=== PATIENT | male | born 1945 | race Caucasian/White ===

== ENCOUNTER → 2016-08-21 | Day surgery (SDC) | payer OTHER ==
[~2016-08-21] VITALS: Ht 182.8 cm; Wt 127.0 kg
[~2016-08-21] MED LIST: AMARYL2 MG PO; ASPIRIN81 M1 PO; CLOPIDOGREL75 MG PO; MELOXICAM7.5 MG PO; METFORMIN HCL1000 MG PO; SIMVASTATIN40 MG PO; TRESIBA FL100 UNIT/1 SC; VITAMIN D50000 I3 PO
--- NOTE | ~2016-08-21 | O ---
[place], [place] OPERATIVE NOTE NAME: THERESA SMITH UNIT #: [id number] ROOM: DOCTOR: SAHARA DUENAS MD BIRTHDATE: [birth year] DOS: 08/21/2016 GASTROENDOSCOPIC REPORT INDICATIONS: A 71-year-old patient who has presented with chief complaint of colonic screening, undergoing investigation. ALLERGIES: TO SULFA. FAMILY HISTORY: Father with colonic carcinoma. PAST SURGICAL HISTORY: Heart ablation. PAST MEDICAL HISTORY: Diabetes, hypertension, and CVA. SOCIAL HISTORY: Nonsmoker, nonalcohol consumer. PROCEDURE: Today's procedure part of investigation is colonoscopy plus multiple polypectomy. PREMEDICATION: Versed and Diprivan. SCOPE: Olympus forward-viewing colonoscope 10L video. REPORT: After putting the patient in the left lateral position and after application of lubricant to rectal pouch and digital examination, scope was introduced. Thereafter, under direct visualization, I advanced through the length of colon without difficulty. Cecal polyp, sessile in character, with piecemeal polypectomy removed. Polypoid lesions x 4, with snare polypectomy was done, at the hepatic flexure, one, particularly broad based and deeply invaded. Site was tattoo marked. Two other polypoid lesions in the sigmoid colon with piecemeal polypectomy removed. The patient extubated and tolerated the procedure well. IMPRESSION: Multiple colonic polyps, one at cecum, four at hepatic flexure, two at sigmoid colon, status post tattoo marking at the hepatic flexure, concerned about polypoid lesion at the hepatic flexure. PLAN AND DISCUSSION: Awaiting biopsy results. If it is dysplastic, then surgical resection. If it is normal, then follow up. ____ and meloxicam is going to be held for the next 5 days due to the intensity of polypectomies that was done. [place], [place] OPERATIVE NOTE NAME: THERESA SMITH UNIT #: [id number] ROOM: DOCTOR: SAHARA DUENAS MD BIRTHDATE: [birth year] SAHARA DUENAS MD CM:OPRECORD:OPERATIVE NOTE [id number] SAHARA DUENAS MD 08/21/16 1357 interface
[2016-08-21 09:50] VITALS: BP 130/77
[2016-08-21 11:53] VITALS: BP 120/60
[2016-08-21 12:10] VITALS: BP 113/80
[2016-08-21 12:24] VITALS: BP 114/59
== END | disposition home or self-care (01) ==
LOC: SDC 08-17 12:30
DX: Z12.11 Encounter for screening for malignant neoplasm of colon (principal); D12.0 Benign neoplasm of cecum; D12.3 Benign neoplasm of transverse colon; D12.5 Benign neoplasm of sigmoid colon; E11.9 Type 2 diabetes mellitus without complications; I10 Essential (primary) hypertension; Z86.73 Personal history of transient ischemic attack (TIA), and cerebral infarction without residual deficits; Z80.0 Family history of malignant neoplasm of digestive organs

== ENCOUNTER → 2017-10-29 | Day surgery (SDC) | payer OTHER ==
[~2017-10-29] VITALS: Ht 182.8 cm; Wt 122.5 kg
[~2017-10-29] MED LIST changes: +FISH OIL 1,2001 EACH PO; +GOOD NEIGHBOR L10 MG PO; +HUMALOG100 UNIT/1 PO; +LISINOPRIL10 M1 PO
--- NOTE | ~2017-10-29 | O ---
[place], [place] OPERATIVE NOTE NAME: THERESA SMITH UNIT #: [id number] ROOM: DOCTOR: SAHARA DUENAS MD BIRTHDATE: [birth year] DOS: 10/29/2017 HISTORY OF PRESENT ILLNESS: The patient has presented with a concern about family history of colonic carcinoma as well as previous history of tubular adenoma polyp with low-grade dysplasia, tattoo, and hepatic flexure. ALLERGIES: SULFA. PAST SURGICAL HISTORY: Heart ablation. PAST MEDICAL HISTORY: CVA and hypertension. SOCIAL HISTORY: Nonsmoker, nonalcohol consumer. PROCEDURE: Today's procedure part of investigation is colonoscopy plus two sessile polypoid lesions, piecemeal polypectomy. PREMEDICATION: Versed and propofol. SCOPE: Olympus forward-viewing colonoscope 10L video. REPORT: After putting the patient in left lateral position and application of lubricant to the scope, the scope was introduced. Thereafter, under direct visualization, advanced through the length of colon without difficulty till we approached about mid ascending colon, which is liquid stool in the colon. Two polypoid lesions, sessile in character from hepatic flexure with piecemeal polypectomy removed. Air was suctioned out. The patient was extubated, tolerated the procedure well. IMPRESSION: Some retained stool in cecum; however, two colonic polyps, status post piecemeal polypectomy. PLAN AND DISCUSSION: Withholding aspirin ____ x 2 days and resumption of orders again. Clopidogrel to be started from Wednesday as well. Follow-up colonoscopy in 10 years unless patient has symptoms for which follow-up should be sooner. Thank you very much indeed for your kind referral. [place], [place] OPERATIVE NOTE NAME: THERESA SMITH UNIT #: [id number] ROOM: DOCTOR: SAHARA DUENAS MD BIRTHDATE: [birth year] SAHARA DUENAS MD CM:OPRECORD:OPERATIVE NOTE [id number] SAHARA DUENAS MD 11/22/17 1743 interface
[2017-10-29 13:37] VITALS: BP 131/89
[2017-10-29 15:15] VITALS: BP 109/69
[2017-10-29 15:30] VITALS: BP 120/77
[2017-10-29 15:45] VITALS: BP 114/90
== END | disposition home or self-care (01) ==
LOC: SDC 10-25 08:45
DX: Z09 Encounter for follow-up examination after completed treatment for conditions other than malignant neoplasm (principal); D12.3 Benign neoplasm of transverse colon; E11.9 Type 2 diabetes mellitus without complications; I10 Essential (primary) hypertension; K21.9 Gastro-esophageal reflux disease without esophagitis; E66.09 Other obesity due to excess calories; Z98.890 Other specified postprocedural states; Z88.2 Allergy status to sulfonamides; Z86.010 Personal history of colon polyps; Z80.0 Family history of malignant neoplasm of digestive organs; Z86.73 Personal history of transient ischemic attack (TIA), and cerebral infarction without residual deficits; Z79.899 Other long term (current) drug therapy; Z68.36 Body mass index [BMI] 36.0-36.9, adult

== ENCOUNTER → 2019-02-10 | Outpatient (CLI) | payer OTHER | END | disposition home or self-care (01) | LOC: ORTHO 01:02 | DX: M47.816 Spondylosis without myelopathy or radiculopathy, lumbar region (principal); M16.0 Bilateral primary osteoarthritis of hip; R20.0 Anesthesia of skin; M25.752 Osteophyte, left hip; M25.751 Osteophyte, right hip ==

== ENCOUNTER 2022-04-16 18:09 | Emergency (ER) | payer OTHER ==
[~2022-04-16] VITALS: Wt 103.0 kg
[2022-04-16 19:26] LABS: BASO % 0.3 % (0.0-1.0); EOS # 0.2 10*3/uL (0.0-0.4); EOS % 1.9 % (1.0-4.0); HEMATOCRIT 35.2 % (42.0-52.0); LYMPH # 2.8 10*3/uL (1.3-4.4); LYMPH % 35.2 % (27.0-41.0); MEAN CELL VOLUME 85.4 fl (80.0-94.0); MEAN CORPUSCULAR HGB 27.4 pg (27.0-31.0); MEAN CORPUSCULAR HGB CONC 32.1 g/dl (33.0-37.0); MEAN PLATELET VOLUME 11.5 fl (9.6-12.3); MONO # 0.6 10*3/uL (0.1-1.0); MONO % 7.3 % (3.0-9.0); NEUT # 4.4 10*3/uL (2.3-7.9); PLATELET COUNT AUTOMATED 179 10*3/uL (130-400); RED BLOOD COUNT 4.12 10*6/uL (4.50-5.90); RED CELL DISTRI WIDTH 14.3 % (0-14.5); WHITE BLOOD COUNT 7.9 10*3/uL (4.8-10.8)
[2022-04-16 19:49] LABS: ALKALINE PHOSPHATASE 61 U/L (45-117); BUN 17 mg/dl (7-24); CHLORIDE 108 mmol/L (98-107); CREATININE 1.03 mg/dL (0.70-1.30); POTASSIUM 4.5 mmol/L (3.5-5.1); SGOT/AST 12 IU/L (3-35); SGPT/ALT 17 U/L (12-78); SODIUM 138 mmol/L (136-145); TOTAL PROTEIN 6.4 gm/dL (6.4-8.2)
== END 2022-04-16 21:49 | disposition home or self-care (01) ==
LOC: ED 18:09
PROVIDERS: Nurse Practitioner
DX: S00.81XA Abrasion of other part of head, initial encounter (principal); Z79.899 Other long term (current) drug therapy; Z79.82 Long term (current) use of aspirin; Z88.2 Allergy status to sulfonamides; W19.XXXA Unspecified fall, initial encounter; Y93.89 Activity, other specified; Y92.89 Other specified places as the place of occurrence of the external cause; Y99.8 Other external cause status

== ENCOUNTER 2022-08-31 13:21 | Emergency (ER) | payer OTHER ==
[~2022-08-31] VITALS: Ht 182.8 cm; Wt 104.8 kg
[2022-08-31 14:04] LABS: BASO % 0.2 % (0.0-1.0); EOS # 0.2 10*3/uL (0.0-0.4); EOS % 2.3 % (1.0-4.0); HEMATOCRIT 31.6 % (42.0-52.0); LYMPH # 3.2 10*3/uL (1.3-4.4); LYMPH % 38.1 % (27.0-41.0); MEAN CELL VOLUME 82.9 fl (80.0-94.0); MEAN CORPUSCULAR HGB 26.5 pg (27.0-31.0); MEAN PLATELET VOLUME 11.3 fl (9.6-12.3); MONO # 0.7 10*3/uL (0.1-1.0); MONO % 8.1 % (3.0-9.0); NEUT # 4.3 10*3/uL (2.3-7.9); NEUT % 51.2 % (47.0-73.0); PLATELET COUNT AUTOMATED 200 10*3/uL (130-400); RED BLOOD COUNT 3.81 10*6/uL (4.50-5.90); RED CELL DISTRI WIDTH 14.3 % (0-14.5); WHITE BLOOD COUNT 8.4 10*3/uL (4.8-10.8)
[2022-08-31 14:15] LABS: ACT PARTIAL THROMBO TIME 26.6 SECONDS (20.0-32.1); INTERNATIONAL NORM RATIO 1.1 (2.0-3.5)
[2022-08-31 14:19] LABS: ALKALINE PHOSPHATASE 63 U/L (46-116); BUN 12 mg/dl (9-23); CHLORIDE 105 mmol/L (98-107); POTASSIUM 4.5 mmol/L (3.4-5.1); SGPT/ALT 9 U/L (10-49); TOTAL PROTEIN 6.1 gm/dL (6.0-8.0)
[2022-08-31 15:42] LABS: BILIRUBIN Negative (Negative); BLOOD Negative (Negative); CLARITY Clear (Clear); COLOR Yellow (Yellow); GLUCOSE 3+ (Negative); KETONE Trace (Negative); LEUKO ESTERASE Negative (Negative); NITRITE Negative (Negative); SPECIFIC GRAVITY 1.025 (1.001-1.030); UROBILINOGEN 0.2 E.U./dl (0.0-1.0)
[2022-08-31 15:59] LABS: RBC 0-2 rbc/hpf (0-2); WBC 0-2 wbc/hpf (0-5)
[2022-08-31 16:03] LABS: URINE AMPHETAMINES Negative (1000ng/ml); URINE BARBITURATES Negative (200ng/ml); URINE BENZODIAZEPINES Negative (200ng/ml); URINE CANNABINOIDS (THC) Negative (50ng/ml); URINE COCAINE Negative (300ng/ml); URINE METHADONE Negative (300ng/ml); URINE OPIATES Negative (300ng/ml); URINE PHENCYCLIDINE Negative (25ng/ml)
== END 2022-09-01 10:28 ==
LOC: ED 13:21
PROVIDERS: Emergency Medicine; Internal Medicine
DX: R45.851 Suicidal ideations (principal); F43.21 Adjustment disorder with depressed mood; E11.9 Type 2 diabetes mellitus without complications; I10 Essential (primary) hypertension; Z86.73 Personal history of transient ischemic attack (TIA), and cerebral infarction without residual deficits; K21.9 Gastro-esophageal reflux disease without esophagitis; Z98.890 Other specified postprocedural states; Z20.822 Contact with and (suspected) exposure to COVID-19

== ENCOUNTER 2023-08-05 18:51 | Emergency (ER) | payer OTHER ==
[~2023-08-05 18:51] MED LIST changes: +ATORVASTATIN CA20 M1 PO; +B121000 MCG/1 IM; +COLACE100 MG PO; +ELIQUIS5 M1 PO; +IRON325 M1 PO; +KEFLEX 500 MG E2 CAP PO; +LISINOPRIL20 MG PO; +MELATONIN5 M6 PO; +METFORMIN HYDR500 MG PO; +NUED1CAP PO; +TRESIBA100 UNIT/1 SQ; +TRULICITY0.75 MG/0. SC; +ZOLOFT100 MG PO; +ZOLOFT25 MG PO
[2023-08-05] MEDS ORDERED: ATIVAN0.5 MG PO (19:21)
[2023-08-05] MEDS ORDERED: ACETAMINOPHEN325 M2 PO (19:21)
[2023-08-05] MEDS ORDERED: DEPAKOTE500 M2 PO (19:24)
[2023-08-05] MEDS ORDERED: HYDROXYZINE HCL25 MG PO (19:25)
[2023-08-05] MEDS ORDERED: MILK OF MA400 MG/53 PO (19:27)
[2023-08-05 19:28] LABS: BASO % 0.3 % (0.0-1.0); EOS # 0.2 10*3/uL (0.0-0.4); EOS % 2.7 % (1.0-4.0); HEMATOCRIT 26.5 % (42.0-52.0); LYMPH # 2.9 10*3/uL (1.3-4.4); LYMPH % 36.9 % (27.0-41.0); MEAN CELL VOLUME 80.5 fl (80.0-94.0); MEAN CORPUSCULAR HGB 24.3 pg (27.0-31.0); MEAN CORPUSCULAR HGB CONC 30.2 g/dl (33.0-37.0); MEAN PLATELET VOLUME 10.7 fl (9.6-12.3); MONO # 0.6 10*3/uL (0.1-1.0); MONO % 7.3 % (3.0-9.0); NEUT # 4.1 10*3/uL (2.3-7.9); NEUT % 52.5 % (47.0-73.0); PLATELET COUNT AUTOMATED 212 10*3/uL (130-400); RED BLOOD COUNT 3.29 10*6/uL (4.50-5.90); RED CELL DISTRI WIDTH 16.5 % (0-14.5); WHITE BLOOD COUNT 7.8 10*3/uL (4.8-10.8)
[2023-08-05] MEDS ORDERED: NOVOLOG FL100 UNIT/2 SC (19:30)
[2023-08-05] MEDS ORDERED: TRESIBA FL100 UNIT/1 SQ (19:36)
[2023-08-05] MEDS ORDERED: VOLTAREN ARTHRI20 GM T (19:38)
[2023-08-05 20:10] LABS: ALKALINE PHOSPHATASE 69 U/L (46-116); BUN 22 mg/dl (9-23); CHLORIDE 104 mmol/L (98-107); CPK 202 U/L (34-171); ETHYL ALCOHOL < 3.0 mg/dl (<3); POTASSIUM 4.4 mmol/L (3.4-5.1); SGPT/ALT 20 U/L (5-49); TOTAL PROTEIN 5.9 gm/dL (6.0-8.0)
[2023-08-05] MEDS ORDERED: SODIUM CHLORIDE 0.9% 1,000 ML IV ONE (20:15)
[2023-08-05] MEDS ORDERED: INSULIN REGULAR, HUMAN 1 UNIT/0.01 ML IV ONE (20:50)
[2023-08-05] MEDS ORDERED: LORazepam 1 MG TAB PO ONE (22:25)
[2023-08-05 22:55] LABS: BILIRUBIN Negative (Negative); BLOOD Negative (Negative); CLARITY Clear (Clear); COLOR Yellow (Yellow); GLUCOSE 3+ (Negative); KETONE Negative (Negative); LEUKO ESTERASE Negative (Negative); NITRITE Negative (Negative); PH 5.5 (4.5-8.0); UROBILINOGEN 0.2 E.U./dl (0.0-1.0)
[2023-08-05 23:02] LABS: URINE AMPHETAMINES Negative (1000ng/ml); URINE BARBITURATES Negative (200ng/ml); URINE BENZODIAZEPINES Negative (200ng/ml); URINE CANNABINOIDS (THC) Negative (50ng/ml); URINE COCAINE Negative (300ng/ml); URINE METHADONE Negative (300ng/ml); URINE OPIATES Negative (300ng/ml); URINE PHENCYCLIDINE Negative (25ng/ml)
[2023-08-05] MEDS ORDERED: DIAZEPAM 10 MG/2 ML SYR IM ONE (23:25)
[2023-08-05] MEDS ORDERED: Ziprasidone Mesylate 20 MG VIAL IM ONE (23:55)
== END 2023-08-06 09:20 | disposition short-term general hospital (02) ==
LOC: ED 18:51
PROVIDERS: Nurse Practitioner Family
DX: E86.0 Dehydration (principal); Z20.822 Contact with and (suspected) exposure to COVID-19; E11.65 Type 2 diabetes mellitus with hyperglycemia; I10 Essential (primary) hypertension; Z86.73 Personal history of transient ischemic attack (TIA), and cerebral infarction without residual deficits; K21.9 Gastro-esophageal reflux disease without esophagitis; F03.90 Unspecified dementia, unspecified severity, without behavioral disturbance, psychotic disturbance, mood disturbance, and anxiety; Z88.2 Allergy status to sulfonamides; Z88.8 Allergy status to other drugs, medicaments and biological substances; Z98.890 Other specified postprocedural states; Z79.899 Other long term (current) drug therapy

== ENCOUNTER 2024-01-19 08:33 | Inpatient (IN) | payer MEDICARE ==
[~2024-01-19] VITALS: Ht 185.4 cm; Wt 79.0 kg
[~2024-01-19 08:33] MED LIST changes: +ACETAMINOPHEN325 M2 PO; +ATIVAN0.5 MG PO; +DEPAKOTE500 M2 PO; +HYDROXYZINE HCL25 MG PO; +MASON NATURAL325 MG PO; +MILK OF MA400 MG/53 PO; +NOVOLOG FL100 UNIT/2 SC; +TRESIBA FL100 UNIT/1 SQ; +VOLTAREN ARTHRI20 GM T
[2024-01-19 08:47] VITALS: BP 110/57
[2024-01-19] MEDS ORDERED: AMMONIUM LACTA227 GM T (08:59)
[2024-01-19] MEDS ORDERED: DAKIN'S473 ML T (09:00)
[2024-01-19] MEDS ORDERED: DEPAKOTE SPRIN125 MG PO (09:01)
[2024-01-19] MEDS ORDERED: DULCOLAX10 M1 R (09:02)
[2024-01-19] MEDS ORDERED: CEPHALEXIN500 M1 PO (09:03)
[2024-01-19] MEDS ORDERED: MAGOX 400400 MG PO (09:06)
[2024-01-19] MEDS ORDERED: MELATONIN 3 MG1 EACH PO (09:07)
[2024-01-19] MEDS ORDERED: MIRALAX17 GM PO (09:09)
[2024-01-19 09:11] LABS: BASO % 0.2 % (0.0-1.0); EOS # 0.5 10*3/uL (0.0-0.4); EOS % 5.4 % (1.0-4.0); HEMATOCRIT 23.4 % (42.0-52.0); LYMPH # 3.8 10*3/uL (1.3-4.4); LYMPH % 42.7 % (27.0-41.0); MEAN CELL VOLUME 81.5 fl (80.0-94.0); MEAN CORPUSCULAR HGB 25.1 pg (27.0-31.0); MEAN CORPUSCULAR HGB CONC 30.8 g/dl (33.0-37.0); MEAN PLATELET VOLUME 10.3 fl (9.6-12.3); MONO # 0.7 10*3/uL (0.1-1.0); MONO % 8.2 % (3.0-9.0); NEUT # 3.9 10*3/uL (2.3-7.9); NEUT % 43.3 % (47.0-73.0); PLATELET COUNT AUTOMATED 234 10*3/uL (130-400); RED BLOOD COUNT 2.87 10*6/uL (4.50-5.90); RED CELL DISTRI WIDTH 15.2 % (0-14.5); WHITE BLOOD COUNT 8.9 10*3/uL (4.8-10.8)
[2024-01-19] MEDS ORDERED: TRULICITY0.75 MG/0. SC (09:11)
[2024-01-19 09:28] LABS: ACT PARTIAL THROMBO TIME 26.9 SECONDS (20.0-32.1)
[2024-01-19 09:32] LABS: ALKALINE PHOSPHATASE 65 U/L (46-116); BUN 13 mg/dl (9-23); CHLORIDE 110 mmol/L (98-107); POTASSIUM 4.2 mmol/L (3.4-5.1); SGPT/ALT 9 U/L (5-49); TOTAL PROTEIN 5.8 gm/dL (6.0-8.0)
[2024-01-19 12:40] VITALS: BP 118/62
[2024-01-19] MEDS ORDERED: BISACODYL 10 MG SUPP R PRN (13:40)
[2024-01-19] MEDS ORDERED: ACETAMINOPHEN 325 MG TAB PO PRN (13:40)
[2024-01-19] MEDS ORDERED: Magnesium Hydroxide 30 ML UDC PO PRN (13:40)
[2024-01-19] MEDS ORDERED: BISACODYL 5 MG TAB PO PRN (13:40)
[2024-01-19] MEDS ORDERED: ACETAMINOPHEN 650 MG SUPP R PRN (13:40)
[2024-01-19] MEDS ORDERED: Piperacillin Sodium/Tazobact 4.5 GM in SODIUM CHLORIDE 0.9% 100 ML IV SCH (14:00)
[2024-01-19] MEDS ORDERED: Vancomycin Hydrochloride 1,000 MG in SODIUM CHLORIDE 0.9% 250 ML IV SCH ×2 (14:10→16:00)
[2024-01-19 16:35] VITALS: BP 134/71
[2024-01-19] MEDS ORDERED: DEXTROSE 10 % IN WATER 250 ML IV PRN (17:45)
[2024-01-19 19:46] VITALS: BP 135/73
[2024-01-19] MEDS ORDERED: INSULIN LISPRO 1 UNIT/0.01 ML SQ SCH (22:00)
[2024-01-19] MEDS ORDERED: DIVALPROEX SODIUM 125 MG CAP PO SCH (22:00)
[2024-01-20] VITALS (8 sets, daily range): BP systolic 139–182; BP diastolic 67–93
[2024-01-20 06:09] LABS: BASO % 0.2 % (0.0-1.0); EOS # 0.3 10*3/uL (0.0-0.4); EOS % 3.3 % (1.0-4.0); HEMATOCRIT 24.3 % (42.0-52.0); LYMPH % 38.7 % (27.0-41.0); MEAN CELL VOLUME 80.2 fl (80.0-94.0); MEAN CORPUSCULAR HGB 24.8 pg (27.0-31.0); MEAN CORPUSCULAR HGB CONC 30.9 g/dl (33.0-37.0); MEAN PLATELET VOLUME 11.3 fl (9.6-12.3); MONO # 0.9 10*3/uL (0.1-1.0); MONO % 8.5 % (3.0-9.0); NEUT # 5.1 10*3/uL (2.3-7.9); PLATELET COUNT AUTOMATED 266 10*3/uL (130-400); RED BLOOD COUNT 3.03 10*6/uL (4.50-5.90); RED CELL DISTRI WIDTH 15.4 % (0-14.5); WHITE BLOOD COUNT 10.4 10*3/uL (4.8-10.8)
[2024-01-20 07:19] LABS: BUN 13 mg/dl (9-23); CHLORIDE 108 mmol/L (98-107); CHOLESTEROL 91 mg/dL (<200); LDL CHOLESTEROL 48 mg/dL (9-159); TRIGLYCERIDES 64 mg/dl (<150)
[2024-01-20 07:22] LABS: VITAMIN D, 25-HYDROXY 49.9 ng/mL (30-100)
[2024-01-20] MEDS ORDERED: DEPAKOTE SPRIN125 MG PO ×2 (08:05)
[2024-01-20] MEDS ORDERED: SODIUM CHLORIDE 0.9% 1,000 ML IV ONE (08:30)
[2024-01-20] MEDS ORDERED: Sertraline Hydrochloride 50 MG TAB PO SCH ×2 (10:00)
[2024-01-20] MEDS ORDERED: LISINOPRIL 20 MG TAB PO SCH (10:00)
[2024-01-20] MEDS ORDERED: LORazepam 1 MG TAB PO ONE (10:35)
[2024-01-20] MEDS ORDERED: ATORVASTATIN CALCIUM 20 MG TAB PO SCH (18:00)
[2024-01-20] MEDS ORDERED: SODIUM CHLORIDE 0.9% 500 ML IV ONE (21:52)
[2024-01-21] VITALS (8 sets, daily range): BP systolic 118–166; BP diastolic 62–84
[2024-01-21 06:29] LABS: BASO % 0.5 % (0.0-1.0); EOS # 0.3 10*3/uL (0.0-0.4); EOS % 2.9 % (1.0-4.0); LYMPH # 3.4 10*3/uL (1.3-4.4); LYMPH % 38.7 % (27.0-41.0); MEAN CELL VOLUME 80.9 fl (80.0-94.0); MEAN CORPUSCULAR HGB 25.6 pg (27.0-31.0); MEAN CORPUSCULAR HGB CONC 31.7 g/dl (33.0-37.0); MEAN PLATELET VOLUME 10.7 fl (9.6-12.3); MONO # 0.7 10*3/uL (0.1-1.0); NEUT # 4.3 10*3/uL (2.3-7.9); NEUT % 49.7 % (47.0-73.0); PLATELET COUNT AUTOMATED 292 10*3/uL (130-400); RED BLOOD COUNT 3.71 10*6/uL (4.50-5.90); WHITE BLOOD COUNT 8.7 10*3/uL (4.8-10.8)
[2024-01-21 07:12] LABS: ALKALINE PHOSPHATASE 68 U/L (46-116); BUN 11 mg/dl (9-23); CHLORIDE 110 mmol/L (98-107); POTASSIUM 4.5 mmol/L (3.4-5.1); SGPT/ALT 8 U/L (5-49); TOTAL PROTEIN 6.4 gm/dL (6.0-8.0); VALPROIC ACID (DEPAKENE) 9.8 ug/ml (50-100)
[2024-01-21] MEDS ORDERED: ceFAZolin sodium 2 GM in SYRINGE INFUSION 20 ML IV ONE (11:50)
[2024-01-21] MEDS ORDERED: Vancomycin Hydrochloride 1,000 MG VIAL T ONE (12:05)
[2024-01-21] MEDS ORDERED: ceFAZolin sodium 2GM/20ML IV ONE (12:10)
[2024-01-21] MEDS ORDERED: ceFAZolin sodium/sodium chlor 20 ML IV ONE (12:31)
[2024-01-21] MEDS ORDERED: SODIUM CHLORIDE 0.9% 1,000 ML IV ONE (12:31)
[2024-01-21] MEDS ORDERED: BUPIVACAINE 0.5% 30 ML IV ONE (12:50)
[2024-01-21] MEDS ORDERED: Midazolam Hydrochloride 2 MG/2 ML VIAL IV ONE (14:31)
[2024-01-21] MEDS ORDERED: PROPOFOL 200 MG/20 ML VIAL IV ONE (14:31)
[2024-01-21] MEDS ORDERED: MORPHINE Sulfate 2 MG/ML SYR IV PRN ×2 (17:45→20:12)
[2024-01-21] MEDS ORDERED: Acetaminophen/Oxycodone 5 MG/325 MG TABLET PO PRN (20:15)
[2024-01-22] VITALS: BP 140/77
[2024-01-22 06:18] LABS: BASO % 0.2 % (0.0-1.0); EOS # 0.3 10*3/uL (0.0-0.4); EOS % 4.1 % (1.0-4.0); HEMATOCRIT 28.5 % (42.0-52.0); LYMPH # 3.2 10*3/uL (1.3-4.4); LYMPH % 39.1 % (27.0-41.0); MEAN CELL VOLUME 82.4 fl (80.0-94.0); MEAN CORPUSCULAR HGB 24.9 pg (27.0-31.0); MEAN CORPUSCULAR HGB CONC 30.2 g/dl (33.0-37.0); MEAN PLATELET VOLUME 10.9 fl (9.6-12.3); MONO # 0.8 10*3/uL (0.1-1.0); MONO % 10.3 % (3.0-9.0); NEUT # 3.7 10*3/uL (2.3-7.9); NEUT % 46.1 % (47.0-73.0); PLATELET COUNT AUTOMATED 290 10*3/uL (130-400); RED BLOOD COUNT 3.46 10*6/uL (4.50-5.90); RED CELL DISTRI WIDTH 14.8 % (0-14.5); WHITE BLOOD COUNT 8.1 10*3/uL (4.8-10.8)
[2024-01-22 06:45] LABS: BUN 8 mg/dl (9-23); CHLORIDE 110 mmol/L (98-107); POTASSIUM 4.7 mmol/L (3.4-5.1)
[2024-01-22 08:00] VITALS: BP 137/72
[2024-01-22 12:00] VITALS: BP 140/66
[2024-01-22 14:08] LABS: ACID FAST SPEC PROCESSING Tissue Grinding (.)
[2024-01-22 16:00] VITALS: BP 156/66
[2024-01-22 16:07] LABS: ACID FAST SPEC PROCESSING Tissue Grinding (.)
[2024-01-22 20:00] VITALS: BP 129/69
[2024-01-23] VITALS: BP 145/70
[2024-01-23 06:27] LABS: BASO % 0.2 % (0.0-1.0); EOS # 0.3 10*3/uL (0.0-0.4); EOS % 3.6 % (1.0-4.0); HEMATOCRIT 27.5 % (42.0-52.0); LYMPH # 3.6 10*3/uL (1.3-4.4); LYMPH % 41.4 % (27.0-41.0); MEAN CORPUSCULAR HGB 25.6 pg (27.0-31.0); MEAN CORPUSCULAR HGB CONC 32.4 g/dl (33.0-37.0); MEAN PLATELET VOLUME 10.4 fl (9.6-12.3); MONO # 0.8 10*3/uL (0.1-1.0); MONO % 9.2 % (3.0-9.0); NEUT # 3.9 10*3/uL (2.3-7.9); NEUT % 45.4 % (47.0-73.0); PLATELET COUNT AUTOMATED 280 10*3/uL (130-400); RED BLOOD COUNT 3.47 10*6/uL (4.50-5.90); RED CELL DISTRI WIDTH 15.1 % (0-14.5); WHITE BLOOD COUNT 8.6 10*3/uL (4.8-10.8)
[2024-01-23 06:46] LABS: BUN 6 mg/dl (9-23); CHLORIDE 107 mmol/L (98-107)
[2024-01-23 06:47] LABS: POTASSIUM 3.6 mmol/L (3.4-5.1)
[2024-01-23 06:58] LABS: MEAN CELL VOLUME 79.3 fl (80.0-94.0)
[2024-01-23 08:00] VITALS: BP 138/69
[2024-01-23] MEDS ORDERED: VANCOMYCIN/WATER FOR INJ (PEG) 250 ML IV SCH (10:00)
[2024-01-23 12:00] VITALS: BP 134/64
[2024-01-23 16:00] VITALS: BP 136/66
[2024-01-23 20:00] VITALS: BP 135/65
[2024-01-23] MEDS ORDERED: AMOXICILLIN500 M3 PO (23:36)
[2024-01-23] MEDS ORDERED: METRONIDAZOLE500 M1 PO (23:36)
[2024-01-23] MEDS ORDERED: CEFTRIAXONE2 G1 IV (23:36)
[2024-01-24] VITALS: BP 139/68
[2024-01-24 06:38] LABS: BASO % 0.3 % (0.0-1.0); EOS # 0.3 10*3/uL (0.0-0.4); HEMATOCRIT 29.9 % (42.0-52.0); LYMPH # 3.5 10*3/uL (1.3-4.4); LYMPH % 36.2 % (27.0-41.0); MEAN CELL VOLUME 80.6 fl (80.0-94.0); MEAN CORPUSCULAR HGB 25.1 pg (27.0-31.0); MEAN CORPUSCULAR HGB CONC 31.1 g/dl (33.0-37.0); MEAN PLATELET VOLUME 10.5 fl (9.6-12.3); MONO # 0.9 10*3/uL (0.1-1.0); MONO % 9.3 % (3.0-9.0); NEUT # 4.9 10*3/uL (2.3-7.9); NEUT % 50.9 % (47.0-73.0); PLATELET COUNT AUTOMATED 291 10*3/uL (130-400); RED BLOOD COUNT 3.71 10*6/uL (4.50-5.90); RED CELL DISTRI WIDTH 15.1 % (0-14.5); WHITE BLOOD COUNT 9.7 10*3/uL (4.8-10.8)
[2024-01-24 06:57] LABS: BUN 6 mg/dl (9-23); CHLORIDE 109 mmol/L (98-107)
[2024-01-24 07:10] LABS: POTASSIUM 4.7 mmol/L (3.4-5.1)
[2024-01-24 08:00] VITALS: BP 154/86
[2024-01-24] MEDS ORDERED: SODIUM CHLORIDE 0.9% 1,000 ML IV ONE (10:35)
[2024-01-24] MEDS ORDERED: METRONIDAZOLE500 M1 PO (11:41)
[2024-01-24] MEDS ORDERED: CEFTRIAXONE2 G1 IV (11:41)
[2024-01-24] MEDS ORDERED: AMOXICILLIN500 M3 PO (11:41)
[2024-01-24 17:56] VITALS: BP 154/86
[2024-01-25] VITALS: BP 158/91
[2024-01-25] MEDS ORDERED: Piperacillin Sodium/Tazobact 4.5 GM in SODIUM CHLORIDE 0.9% 100 ML IV SCH
[2024-01-25 06:17] LABS: BASO % 0.2 % (0.0-1.0); EOS # 0.3 10*3/uL (0.0-0.4); HEMATOCRIT 27.2 % (42.0-52.0); LYMPH % 40.9 % (27.0-41.0); MEAN CELL VOLUME 80.7 fl (80.0-94.0); MEAN CORPUSCULAR HGB 26.1 pg (27.0-31.0); MEAN CORPUSCULAR HGB CONC 32.4 g/dl (33.0-37.0); MEAN PLATELET VOLUME 10.5 fl (9.6-12.3); MONO # 0.8 10*3/uL (0.1-1.0); MONO % 7.7 % (3.0-9.0); NEUT # 4.7 10*3/uL (2.3-7.9); NEUT % 48.1 % (47.0-73.0); PLATELET COUNT AUTOMATED 267 10*3/uL (130-400); RED BLOOD COUNT 3.37 10*6/uL (4.50-5.90); RED CELL DISTRI WIDTH 15.5 % (0-14.5); WHITE BLOOD COUNT 9.8 10*3/uL (4.8-10.8)
[2024-01-25 08:00] VITALS: BP 147/97
[2024-01-25 08:05] LABS: ALKALINE PHOSPHATASE 62 U/L (46-116); BUN 5 mg/dl (9-23); CHLORIDE 108 mmol/L (98-107); POTASSIUM 3.9 mmol/L (3.4-5.1)
[2024-01-25 08:27] LABS: SGPT/ALT < 7 U/L (5-49)
[2024-01-25] MEDS ORDERED: ELIQUIS5 M1 PO (10:30)
[2024-01-25 12:00] VITALS: BP 140/74
[2024-01-27 13:07] LABS: ANAEROBE RESULT 1 Bacteroides fragilis (.)
[2024-01-27 13:07] LABS: ANAEROBE RESULT 1 Bacteroides fragilis (.)
== END 2024-01-25 15:57 | DRG 628 ==
LOC: ED 08:33 → 4E 09:57 → EDHOLD 09:57 → 4E 01-20 00:12
PROVIDERS: Emergency Medicine; Podiatrist; Student in an Organized Health Care Education/Training Program; ADMIT Internal Medicine; ATTEND Internal Medicine
PROC: 30233N1 Transfusion of Nonautologous Red Blood Cells into Peripheral Vein, Percutaneous Approach (ICD-10-PCS; 2024-01-20)
PROC: 0QBL0ZZ Excision of Right Tarsal, Open Approach (ICD-10-PCS; principal; 2024-01-21)
PROC: 0QUL0KZ Supplement Right Tarsal with Nonautologous Tissue Substitute, Open Approach (ICD-10-PCS; 2024-01-21)
PROC: 02HV33Z Insertion of Infusion Device into Superior Vena Cava, Percutaneous Approach (ICD-10-PCS; 2024-01-24)
DX: E11.69 Type 2 diabetes mellitus with other specified complication (principal); E43 Unspecified severe protein-calorie malnutrition; L89.613 Pressure ulcer of right heel, stage 3; F03.93 Unspecified dementia, unspecified severity, with mood disturbance; M86.171 Other acute osteomyelitis, right ankle and foot; S91.301A Unspecified open wound, right foot, initial encounter; D64.9 Anemia, unspecified; L89.891 Pressure ulcer of other site, stage 1; E83.52 Hypercalcemia; F43.21 Adjustment disorder with depressed mood; I48.91 Unspecified atrial fibrillation; E78.5 Hyperlipidemia, unspecified; I10 Essential (primary) hypertension; F32.9 Major depressive disorder, single episode, unspecified; E11.65 Type 2 diabetes mellitus with hyperglycemia; M24.574 Contracture, right foot; E11.51 Type 2 diabetes mellitus with diabetic peripheral angiopathy without gangrene; B96.20 Unspecified Escherichia coli [E. coli] as the cause of diseases classified elsewhere; B96.4 Proteus (mirabilis) (morganii) as the cause of diseases classified elsewhere; Z79.899 Other long term (current) drug therapy; Z79.01 Long term (current) use of anticoagulants; Z86.73 Personal history of transient ischemic attack (TIA), and cerebral infarction without residual deficits; Z79.4 Long term (current) use of insulin; Z79.2 Long term (current) use of antibiotics; Z88.2 Allergy status to sulfonamides; Z88.8 Allergy status to other drugs, medicaments and biological substances; Z91.09 Other allergy status, other than to drugs and biological substances; Z68.22 Body mass index [BMI] 22.0-22.9, adult

== ENCOUNTER → 2024-02-23 | Day surgery (SDC) | payer MEDICARE ==
[~2024-02-23] MED LIST changes: +AMMONIUM LACTA227 GM T; +AMOXICILLIN500 M3 PO; +BUPIVACAINE 0.5% 30 ML IV ONE; +CEFTRIAXONE2 G1 IV; +CEPHALEXIN500 M1 PO; +DAKIN'S473 ML T; +DEPAKOTE SPRIN125 MG PO; +DULCOLAX10 M1 R; +Lactated Ringer's Solution 1,000 ML IV ONE; +MAGOX 400400 MG PO; +MELATONIN 3 MG1 EACH PO; +METRONIDAZOLE500 M1 PO; +MIRALAX17 GM PO; +PROPOFOL 200 MG/20 ML VIAL IV ONE; +Vancomycin Hydrochloride 1,000 MG VIAL ONE
[2024-02-23 09:13] VITALS: BP 141/73
[2024-02-23 12:14] VITALS: BP 105/62
[2024-02-23 12:29] VITALS: BP 112/60
[2024-02-23 12:44] VITALS: BP 129/58
[2024-02-24 14:10] LABS: ACID FAST SPEC PROCESSING Tissue Grinding (.)
== END | disposition home or self-care (01) ==
LOC: SDC 02-18 14:00
PROVIDERS: ATTEND Podiatrist
DX: S91.301A Unspecified open wound, right foot, initial encounter (principal); M86.671 Other chronic osteomyelitis, right ankle and foot; I10 Essential (primary) hypertension; K21.9 Gastro-esophageal reflux disease without esophagitis; E78.5 Hyperlipidemia, unspecified; I48.91 Unspecified atrial fibrillation; F32.9 Major depressive disorder, single episode, unspecified; E11.9 Type 2 diabetes mellitus without complications; E43 Unspecified severe protein-calorie malnutrition; Z79.4 Long term (current) use of insulin; Z79.84 Long term (current) use of oral hypoglycemic drugs; Z79.899 Other long term (current) drug therapy; Z88.2 Allergy status to sulfonamides; Z88.8 Allergy status to other drugs, medicaments and biological substances; X58.XXXA Exposure to other specified factors, initial encounter; Y93.89 Activity, other specified; Y92.89 Other specified places as the place of occurrence of the external cause; Y99.8 Other external cause status